=== PATIENT | male | born 1950 | race Caucasian/White ===

== ENCOUNTER 2021-12-04 03:02 | Outpatient (CLI) | payer OTHER, SELFPAY ==
[2021-12-04 12:14] LABS: Source Nasal/Nares
[2021-12-04 15:16] LABS: COVID-19 PCR Negative (Negative)
== END 2021-12-04 03:03 | disposition home or self-care (01) ==
LOC: LBO 03:02
PROVIDERS: PCP Family Medicine; Visit Provider Ophthalmology
DX: Z20.822 Contact with and (suspected) exposure to COVID-19 (principal); Z01.818 Encounter for other preprocedural examination
CPT/HCPCS: 87635

== ENCOUNTER 2021-12-06 07:01 | Day surgery (SDC) | payer OTHER, SELFPAY ==
[2021-12-06] MEDS: Tropicam./Phenyleph. (1/2.5%) 5 ML BTL OS ×3 (07:41→08:00)
[2021-12-06 07:45] VITALS: BP 158/107; PULSE 60; RESP 18; TEMP 36.6; O2SAT 98
--- NOTE | 2021-12-06 07:55 | ANES.PREOP_ITS ---
General Info Date of Service Date Performed: 12/06/21 Height: 5 ft 5.5 in Weight: 93.5 kg Body Mass Index (BMI): 33.7 Surgical Procedure: Operation Date: 12/06/21 08:40 Proposed Procedures Side Surgeon p Cataract Extraction with IOL Implant Left Keith Haji MD Meds Allergies and Home Medications Allergies Allergy/AdvReac Type Severity Reaction Status Date / Time naproxen AdvReac Mild Other (See Unverified 12/06/21 07:31 Comment) OTC cold medications AdvReac Unknown Other (See Uncoded 12/06/21 07:31 Comment) Home Medication Medication Instructions Recorded albuterol sulfate [Proventil HFA] 2 puff INHALATION Q4H PRN 12/03/21 aspirin 81 mg PO DAILY 12/03/21 atorvastatin 10 mg PO DAILY 12/03/21 chlorthalidone 12.5 mg PO DAILY 12/03/21 finasteride 5 mg PO DAILY 12/03/21 fluticasone propion-salmeterol 1 inh INHALATION BID 12/03/21 [Wixela Inhub] losartan 50 mg PO DAILY 12/03/21 metformin 500 mg PO DAILY 12/03/21 metoprolol tartrate 50 mg PO BID 12/03/21 multivitamin 1 tab PO DAILY 12/03/21 sildenafil 100 mg PO PRN PRN 12/03/21 Current Visit Medications: Current Medications Generic Name Dose Route Start Last Admin Trade Name Freq PRN Reason Stop Dose Admin Acetaminophen 1,000 mg 12/06/21 06:00 Acetaminophen 500 Mg Tab PO Q4H PRN PRN Miscellaneous Medication 0 ml 12/06/21 06:00 Prednisolone 1%, Moxifloxacin 0.5%, Nepafenac 0.1% 5ml Btl OS DIRECTED [facility] Miscellaneous Medication 0 ml 12/06/21 06:00 Tropicam./Phenyleph. (1/2.5%) 5 Ml Btl OS DIRECTED [facility] Tetracaine HCl 0 ml 12/06/21 06:00 Tetracaine 0.5% 4 Ml Btl OS DIRECTED 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 states he had a recent cold for which he took arythromycin, prescription finished,and has no current coughing or symptoms. Surgical History Surgical History Hx of Achilles tendon repair Hx of colonoscopy Hx of shoulder surgery Tobacco Smoking/Tobacco Use Status: Never Alcohol Alcohol Intake: current Alcohol intake frequency: a few times a week Substance Use Substance use: Never Substance use type: does not use Vital Signs and Lab Results Vital Signs Most Recent Vital Signs in EMR: Most Recent Vital Signs Temp Pulse Resp BP Pulse Ox 36.6 C 60 18 158/107 H 98 12/06/21 07:45 12/06/21 07:45 12/06/21 07:45 12/06/21 07:45 12/06/21 07:45 Lab Results Blood Type / Crossmatch: No Data to Display Complete Blood Count: No Data to Display Complete Metabolic Panel: No Data to Display Liver Function Panel: No Data to Display Coagulation Panel: No Data to Display Cardiac Panel: No Data to Display Arterial Blood Gas: No Data to Display Venous Blood Gas: No Data to Display Pancreas Panel: No Data to Display Thyroid Panel: No Data to Display Infectious Disease: Coronavirus (COVID-19)(PCR) Negative (Negative) 12/04/21 09:57 12/04/21 Coronavirus 2019 Source Nasal/Nares 12/04/21 09:57 12/04/21 Blood Cultures: No Data to Display Toxicology Panel: No Data to Display Anesthesia Assessment and Plan Anesthesia History Personal History: No History of Anesthesia Complications Family History: No Family History of Anesthesia Complications Exercise Tolerance Exercise Tolerance: Metabolic Equivalents>4 Pertinent Negatives Pertinent Negatives: No Symptoms of GERD Cardiac & Pulmonary Exam Cardiac Exam: Normal S1/S2 Heart Sounds Pulmonary Exam: Clear Bilateral Breath Sounds Implantable Cardiac Device Does patient have a Pacemaker or an ICD?: No Airway Exam Known Difficult Airway: No Mallampati Class: 3 Mouth Opening: Narrow (< 3cm) Thyromental Distance: Greater than 3 cm Neck Range of Motion: Full ROM Neck Circumference: Normal Teeth Condition: Normal Dentition ASA Classification ASA Score: ASA 2 Emergency Case?: No NPO Status NPO Status: NPO Clears >2 hours, Solids >8 hours Anesthesia Plan Resuscitation Status: Full Code Anesthesia Technique: MAC Anesthesia Airway Planned: Natural Airway Monitors Used: Standard Monitors
[2021-12-06 08:02] VITALS: BP 157/86; PULSE 57; RESP 16; TEMP 36.5; O2SAT 96
[2021-12-06 08:09] VITALS: BMI 33.7
[2021-12-06] MEDS: Tetracaine 0.5% 4 ML BTL OS (08:27)
[2021-12-06] MEDS: Lidocaine 2% Jelly 6 ML SYR (08:37)
[2021-12-06] MEDS: Duovisc Viscoelastic System EACH 1 EACH (08:42)
[2021-12-06] MEDS: Balanced Salt Soln.-PLUS 500 ML BAG (08:42)
[2021-12-06] MEDS: Povidone-Iodine Ophth 30 ML BTL (08:47)
[2021-12-06 09:00] VITALS: BP 145/81; PULSE 64; RESP 18; TEMP 36.1; O2SAT 18
--- NOTE | 2021-12-06 09:19 | W.ANESPOSTOP ---
Postoperative Evaluation Date, Time and Location Date Performed: 12/06/21 Time Performed: 09:05 Patient Location: Day Surgery Unit Vital Signs Most Recent Imported Vital Signs: Most Recent Vital Signs Temp Pulse Resp BP Pulse Ox 36.1 C L 64 18 145/81 H 18 L 12/06/21 09:00 12/06/21 09:00 12/06/21 09:00 12/06/21 09:00 12/06/21 09:00 Pain Score Most Recent Pain Score: Most Recent Pain Score Pain Level 0 12/06/21 09:00 Assessment Mental Status: Awake (Alert & Oriented to Patient Baseline) Airway and Respiratory Function: Patent airway with normal (patient baseline) respiratory exam Cardiovascular Function: Hemodynamically Stable Hydration Status: Adequately Hydrated Nausea & Vomiting: No Nausea or Vomiting Pain: Pt. Denies Any Pain Peripheral Nerve Block: Patient did not receive a nerve block
--- NOTE | 2021-12-06 11:05 | W.PM.DSUDISC ---
Discharge Plan Disposition Patient Disposition: HOME Condition: Good Discharge Details Attending Provider: Keith Haji Primary Care Provider: Eulalio Yanez Home Meds and New Rx's Prescriptions: No Action atorvastatin 20 mg tablet 10 mg PO DAILY RF: 0 chlorthalidone 25 mg tablet 12.5 mg PO DAILY RF: 0 aspirin 81 mg Capsule,Delayed Release(Dr/Ec) 81 mg PO DAILY RF: 0 finasteride 5 mg tablet 5 mg PO DAILY RF: 0 multivitamin Tablet 1 tab PO DAILY RF: 0 losartan 50 mg tablet 50 mg PO DAILY RF: 0 fluticasone propion-salmeterol [Wixela Inhub] 250-50 mcg/dose blister with device 1 inh INHALATION BID RF: 0 sildenafil 100 mg tablet 100 mg PO PRN PRNRF: 0 metoprolol tartrate 50 mg tablet 50 mg PO BID RF: 0 albuterol sulfate [Proventil HFA] 90 mcg/actuation Hfa Aerosol Inhaler 2 puff INHALATION Q4H PRNRF: 0 metformin 500 mg tablet extended release 24 hr 500 mg PO DAILY RF: 0 Discharge Orders Discharge Orders: Discharge Order (Routine); Ordered 12/06/21 Ordered By: Keith Haji Discharge Data Discharge Date/Time-TO BE ENTERED AT DEPARTURE: 12/06/21 09:20 DS: Diagnosis Discharge Diagnosis (1) Posterior subcapsular age-related cataract of left eye: Status: Resolved (2) Nuclear sclerotic cataract of left eye: Status: Resolved (3) Cortical cataract of left eye: Status: Resolved
== END 2021-12-06 09:20 | disposition home or self-care (01) ==
LOC: SUR 07:01
PROVIDERS: PCP Family Medicine; Visit Provider Ophthalmology
PROC: (CPT 66984; principal; 2021-12-06 08:30)
DX: H25.042 Posterior subcapsular polar age-related cataract, left eye (principal); E11.9 Type 2 diabetes mellitus without complications; J44.9 Chronic obstructive pulmonary disease, unspecified; H25.12 Age-related nuclear cataract, left eye; H25.012 Cortical age-related cataract, left eye
CPT/HCPCS: 66984; V2632

== ENCOUNTER 2021-12-18 01:14 | Outpatient (CLI) | payer OTHER, SELFPAY ==
[2021-12-18 14:24] LABS: Source Nasal/Nares
[2021-12-18 18:27] LABS: COVID-19 PCR Negative (Negative)
== END 2021-12-18 01:15 | disposition home or self-care (01) ==
LOC: LBO 01:14
PROVIDERS: PCP Family Medicine; Visit Provider Ophthalmology
DX: Z20.822 Contact with and (suspected) exposure to COVID-19 (principal); Z01.818 Encounter for other preprocedural examination
CPT/HCPCS: 87635

== ENCOUNTER 2021-12-20 07:27 | Day surgery (SDC) | payer OTHER, SELFPAY ==
--- NOTE | 2021-12-06 09:00 | W.PM.DSUDISC ---
Discharge Plan Disposition Patient Disposition: HOME Condition: Good Discharge Details Attending Provider: Keith Haji Primary Care Provider: Eulalio Yanez Home Meds and New Rx's Prescriptions: No Action atorvastatin 20 mg tablet 10 mg PO DAILY RF: 0 chlorthalidone 25 mg tablet 12.5 mg PO DAILY RF: 0 aspirin 81 mg Capsule,Delayed Release(Dr/Ec) 81 mg PO DAILY RF: 0 finasteride 5 mg tablet 5 mg PO DAILY RF: 0 multivitamin Tablet 1 tab PO DAILY RF: 0 losartan 50 mg tablet 50 mg PO DAILY RF: 0 fluticasone propion-salmeterol [Wixela Inhub] 250-50 mcg/dose blister with device 1 inh INHALATION BID RF: 0 sildenafil 100 mg tablet 100 mg PO PRN PRNRF: 0 metoprolol tartrate 50 mg tablet 50 mg PO BID RF: 0 albuterol sulfate [Proventil HFA] 90 mcg/actuation Hfa Aerosol Inhaler 2 puff INHALATION Q4H PRNRF: 0 metformin 500 mg tablet extended release 24 hr 500 mg PO DAILY RF: 0 Discharge Instructions Stand Alone Forms: Post-op Topical Cataract, Darline Lang ([facility]U) Discharge Orders Discharge Orders: Discharge Order (Routine); Ordered 12/06/21 Ordered By: Keith Haji DS: Diagnosis Discharge Diagnosis (1) Cortical cataract of left eye: Status: Resolved (2) Nuclear sclerotic cataract of left eye: Status: Resolved (3) Posterior subcapsular age-related cataract of left eye: Status: Resolved
--- NOTE | 2021-12-06 09:02 | W.PM.OP ---
Date of service: 12/06/21 Time of Service: 09:02 Operative Note Operative Note DATE OF PROCEDURE: 12/06/21 PRE-OP DIAGNOSIS: Nuclear/cortical/posterior subcapsular cataract, left eye Significant with the rule astigmatism, left eye POST-OP DIAGNOSIS: same PROCEDURE: Cataract extraction using phacoemulsification with toric intraocular lens implant, left eye SURGEON: Keith Haji ANESTHESIA TYPE: Local By Surgeon and MAC Refer to Anesthesia Record PATHOLOGY: none sent COMPLICATIONS: None Patient was transported to: same day Patient's condition: stable Implants: [employer] / MELODIE Tecnis ZCT Toric Intraocular Lens Indications: Progressive decreased vision due to cataract, left eye, with corneal astigmatism Findings: Procedure Description: CATARACT SURGERY OPERATIVE REPORT PREOPERATIVE DIAGNOSIS: Nuclear/cortical/posterior subcapsular cataract, left eye Significant with the rule astigmatism, left eye POSTOPERATIVE DIAGNOSIS: Same OPERATION: Cataract extraction using phacoemulsification with posterior chamber toric intraocular lens implant, left eye. IOL: IOL Call Center Coordinator/Model: [employer] / MELODIE Tecnis [id number] IOL Power: + 14.0 diopters sphere, 3.00 cylinder IOL Serial Number: [id number] Optic Diameter: 6.0mm Haptic/Overall Diameter: 13.00mm PHACO INFO: Mark Solace [employer]urion Vision System with OZil and Active Fluidics Cumulative Dispersed Energy (CDE): 26.86 seconds SURGEON: Keith Haji MD, PRIYA ANESTHESIA: Monitored Anesthesia Care (MAC), with local sub-tenon's anesthetic infiltration COMPLICATIONS: None SPECIMENS: None INDICATIONS FOR PROCEDURE: The patient is a 71-year-old gentleman with history of diminished visual acuity in both eyes secondary to the development of bilateral nuclear/cortical/posterior subcapsular cataract. He also has a significant amount of with the rule astigmatism in the left eye. The option of cataract surgery was offered to the patient and he wished to proceed. PROCEDURE: The correct surgical eye was identified and marked as the left eye and the pupil was dilated in the preoperative area using mydriatics and cycloplegics. The dilated pupil size was 7.0 mm. With the patient in the seated position, topical anesthetic was applied and a surgical marker was used to kena the limbus at 6:00. A Surgilum Robomarker was then used to kena the 0/180 degree reference axis. He elected to proceed without oral sedation.. The patient was brought to the operating room where cardiopulmonary monitoring was instituted and surgical time-out was performed, confirming the correct operative eye and IOL power. Topical anesthesia was administered and ophthalmic povidone-iodine 5% was instilled into the conjunctival fornices. Lidocaine gel was applied to the cornea and the rubina-ocular area was prepped with Betadine 10% solution and draped in the usual sterile fashion for intraocular surgery, including an aperture drape. A Tegaderm transparent film dressing was cut in half and used to cover the lashes and lid margins. Care was taken to sequester the lashes and lid margins under the Tegaderm dressing. A lid speculum was placed between the lids of the operative eye and the Charmaine-Juliocesar operating microscope was maneuvered into position. Quique scissors were then used to make a conjunctival buttonhole approximately 6mm posterior to the limbus in the inferonasal quadrant. Blunt dissection was carried out to expose bare sclera, and a blunt-tipped sub-tenon?s anesthesia cannula was introduced and passed posteriorly along the globe where non-preserved plain lidocaine was injected into posterior sub-Tenon?s space. A corneal ring gauge and axis marker were then used to kena the 344 degree position for the main phaco incision, and the 74 degree axis for alignment of the toric IOL. A sideport knife was used to make a paracentesis port superior/superiortemporally. Intraocular phenylephrine/lidocaine was injected into the anterior chamber. The anterior chamber was then filled with viscoelastic. A 2.4mm keratome knife was used to create a half-thickness groove at the limbus and then to construct a three-plane near-clear corneal tunnel extending 2.0mm into clear cornea at the 344 degree axis. . A flap was raised on the anterior capsule and capsulorhexis forceps were used to complete a continuous curvilinear capsulorhexis of 5.0 mm. Balanced salt solution was then used to perform cortical cleaving hydrodissection and nuclear hydrodelineation until the lens could be freely rotated within the capsular bag. The lens nucleus was then disassembled and removed within the capsular bag and iris plane using phacoemulsification. Residual cortical material was removed using the 45-degree angled silicone I/A tip with 0.3mm port. The posterior capsule was carefully polished to remove as much residual lens epithelial cells as safely possible. The capsular bag was then inflated and the anterior chamber deepened with viscoelastic. The lens implant described above was inserted into the capsular bag using the MELODIE [place] Injector. A Kuglen hook was used to dial the IOL into position, about 10 degrees counterclockwise of its final alignment. Residual viscoelastic was then removed first from posterior to the IOL, then from the anterior chamber using the I/A handpiece. The I/A handpiece was then used to dial the IOL to the target axis. The lens implant was noted to center nicely within the capsular bag, with the toric IOL sawant aligned at the 74 degree axis. The incisions were stromally hydrated, and the anterior chamber was reformed using BSS. Then 0.5cc of moxifloxacin 1.0mg/ml were injected into the capsular bag and anterior chamber. The incisions were checked with a Weck spear and found to be secure. Several drops of ophthalmic povidone-iodine 5% were then applied to the eye followed by two drops of Imprimis combination prednisolone/moxifloxacin/nepafenac solution. The drapes were removed and a clear plastic protective eye shield was placed over the eye. The patient was then returned to Same Day Surgery in stable condition.
[2021-12-20 07:31] VITALS: BP 167/96; PULSE 55; RESP 17; TEMP 36.5; O2SAT 98
[2021-12-20] MEDS: Tropicam./Phenyleph. (1/2.5%) 5 ML BTL OD ×3 (07:48→07:56)
[2021-12-20 08:14] VITALS: BMI 34.3
--- NOTE | 2021-12-20 08:14 | W.ANESPRE ---
General Info Date of Service Date Performed: 12/20/21 Height: 5 ft 5.5 in Weight: 95 kg Body Mass Index (BMI): 34.3 Surgical Procedure: Operation Date: 12/06/21 08:55 Proposed Procedures Side Surgeon p Cataract Extraction with IOL Implant Left Keith Haji MD Operation Date: 12/20/21 09:40 Proposed Procedures Side Surgeon p Cataract Extraction with IOL Implant Right Keith Haji MD Meds Allergies and Home Medications Allergies Allergy/AdvReac Type Severity Reaction Status Date / Time naproxen AdvReac Mild Other (See Unverified 12/20/21 07:41 Comment) OTC cold medications AdvReac Unknown Other (See Uncoded 12/20/21 07:41 Comment) Home Medication Medication Instructions Recorded albuterol sulfate [Proventil HFA] 2 puff INHALATION Q4H PRN 12/03/21 aspirin 81 mg PO DAILY 12/03/21 atorvastatin 10 mg PO DAILY 12/03/21 chlorthalidone 12.5 mg PO DAILY 12/03/21 finasteride 5 mg PO DAILY 12/03/21 fluticasone propion-salmeterol 1 inh INHALATION BID 12/03/21 [Wixela Inhub] losartan 50 mg PO DAILY 12/03/21 metformin 500 mg PO DAILY 12/03/21 metoprolol tartrate 50 mg PO BID 12/03/21 multivitamin 1 tab PO DAILY 12/03/21 sildenafil 100 mg PO PRN PRN 12/03/21 Current Visit Medications: Current Medications Generic Name Dose Route Start Last Admin Trade Name Freq PRN Reason Stop Dose Admin Acetaminophen 1,000 mg 12/20/21 06:07 Acetaminophen 500 Mg Tab PO Q4H PRN PRN Miscellaneous Medication 0 ml 12/20/21 06:07 Prednisolone 1%, Moxifloxacin 0.5%, Nepafenac 0.1% 5ml Btl OD DIRECTED [facility] Miscellaneous Medication 0 ml 12/20/21 06:07 12/20/21 07:56 Tropicam./Phenyleph. (1/2.5%) 5 Ml Btl OD 1 drp DIRECTED [facility] Administration Tetracaine HCl 0 ml 12/20/21 06:07 Tetracaine 0.5% 4 Ml Btl OD DIRECTED [facility] PFSH Active Problems Active Problems: Problem Status Onset Code Cortical cataract of left eye H26.9 Nuclear sclerotic cataract of left eye H25.12 Posterior subcapsular age-related cataract of left eye H25.042 Medical History Medical History Atypical chest pain Bilateral cataracts Chest pain Essential hypertension History of COPD History of rupture of Achilles tendon HLD (hyperlipidemia) Hx of acute bronchitis treating with Z-pack 500mg x3days Impotence Localized edema Malignant tumor of prostate Moderate persistent asthma Polyp of colon 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 states he had a recent cold for which he took arythromycin, prescription finished,and has no current coughing or symptoms. Surgical History Surgical History History of cataract surgery Hx of Achilles tendon repair Hx of colonoscopy Hx of shoulder surgery Tobacco Smoking/Tobacco Use Status: Never Alcohol Alcohol Intake: current Alcohol intake frequency: a few times a week Substance Use Substance use: Never Substance use type: does not use Vital Signs and Lab Results Vital Signs Most Recent Vital Signs in EMR: Most Recent Vital Signs Temp Pulse Resp BP Pulse Ox 36.5 C 55 L 17 167/96 H 98 12/20/21 07:31 12/20/21 07:31 12/20/21 07:31 12/20/21 07:31 12/20/21 07:31 Point of Care Results Point of Care Results: Finger Stick Blood Glucose 114 12/20/21 07:48 Lab Results Blood Type / Crossmatch: No Data to Display Complete Blood Count: No Data to Display Complete Metabolic Panel: No Data to Display Liver Function Panel: No Data to Display Coagulation Panel: No Data to Display Cardiac Panel: No Data to Display Arterial Blood Gas: No Data to Display Venous Blood Gas: No Data to Display Pancreas Panel: No Data to Display Thyroid Panel: No Data to Display Infectious Disease: Coronavirus (COVID-19)(PCR) Negative (Negative) 12/18/21 13:30 12/18/21 Coronavirus 2019 Source Nasal/Nares 12/18/21 13:30 12/18/21 Blood Cultures: No Data to Display Toxicology Panel: No Data to Display Anesthesia Assessment and Plan Anesthesia History Personal History: No History of Anesthesia Complications Family History: No Family History of Anesthesia Complications Exercise Tolerance Exercise Tolerance: Metabolic Equivalents>4 Cardiac & Pulmonary Exam Cardiac Exam: Normal S1/S2 Heart Sounds Pulmonary Exam: Clear Bilateral Breath Sounds Implantable Cardiac Device Does patient have a Pacemaker or an ICD?: No Airway Exam Known Difficult Airway: No Mallampati Class: 3 Mouth Opening: Narrow (< 3cm) Thyromental Distance: Greater than 3 cm Neck Range of Motion: Full ROM Neck Circumference: Normal Teeth Condition: Normal Dentition ASA Classification ASA Score: ASA 3 Emergency Case?: No NPO Status NPO Status: NPO Clears >2 hours, Solids >8 hours Anesthesia Plan Resuscitation Status: Full Code Anesthesia Technique: MAC Anesthesia Airway Planned: Natural Airway Monitors Used: Standard Monitors
[2021-12-20] MEDS: Tetracaine 0.5% 4 ML BTL OD (09:05)
[2021-12-20] MEDS: Povidone-Iodine Ophth 30 ML BTL (09:05)
[2021-12-20] MEDS: Lidocaine 2% Jelly 6 ML SYR (09:08)
[2021-12-20] MEDS: Balanced Salt Soln.-PLUS 500 ML BAG (09:16)
[2021-12-20] MEDS: Duovisc Viscoelastic System EACH 1 EACH (09:17)
[2021-12-20 09:37] VITALS: BP 126/76; PULSE 60; RESP 16; TEMP 36.2; O2SAT 97
--- NOTE | 2021-12-20 09:37 | W.PM.DSUDISC ---
Discharge Plan Disposition Patient Disposition: HOME Condition: Good Discharge Details Attending Provider: Keith Haji Primary Care Provider: Eulalio Yanez Home Meds and New Rx's Prescriptions: No Action atorvastatin 20 mg tablet 10 mg PO DAILY RF: 0 chlorthalidone 25 mg tablet 12.5 mg PO DAILY RF: 0 aspirin 81 mg Capsule,Delayed Release(Dr/Ec) 81 mg PO DAILY RF: 0 finasteride 5 mg tablet 5 mg PO DAILY RF: 0 multivitamin Tablet 1 tab PO DAILY RF: 0 losartan 50 mg tablet 50 mg PO DAILY RF: 0 fluticasone propion-salmeterol [Wixela Inhub] 250-50 mcg/dose blister with device 1 inh INHALATION BID RF: 0 sildenafil 100 mg tablet 100 mg PO PRN PRNRF: 0 metoprolol tartrate 50 mg tablet 50 mg PO BID RF: 0 albuterol sulfate [Proventil HFA] 90 mcg/actuation Hfa Aerosol Inhaler 2 puff INHALATION Q4H PRNRF: 0 metformin 500 mg tablet extended release 24 hr 500 mg PO DAILY RF: 0 Discharge Instructions Stand Alone Forms: Post-op Topical Cataract, Darline Lang ([facility]) Discharge Orders Discharge Orders: Discharge Order (Routine); Ordered 12/06/21 Ordered By: Keith Haji DS: Diagnosis Discharge Diagnosis (1) Cortical cataract of right eye: Status: Resolved (2) Nuclear sclerotic cataract of right eye: Status: Resolved (3) Posterior subcapsular age-related cataract, right eye: Status: Resolved (4) Astigmatism of right eye: Status: Chronic
--- NOTE | 2021-12-20 09:39 | W.PM.OP ---
Date of service: 12/20/21 Time of Service: 09:39 Operative Note Operative Note DATE OF PROCEDURE: 12/06/21 PRE-OP DIAGNOSIS: Nuclear/cortical/posterior subcapsular cataract, right eye With the rule astigmatism, right eye POST-OP DIAGNOSIS: same PROCEDURE: Cataract extraction using phacoemulsification with toric intraocular lens implant, right eye SURGEON: Keith Haji Refer to Anesthesia Record PATHOLOGY: none sent COMPLICATIONS: None Patient was transported to: same day Patient's condition: stable Implants: [employer] / MELODIE Tecnis ZCT Toric Intraocular Lens Indications: Progressive decreased vision due to cataract, right eye, with corneal astigmatism Procedure Description: [] CATARACT SURGERY OPERATIVE REPORT PREOPERATIVE DIAGNOSIS: Nuclear/cortical/posterior subcapsular cataract, right eye With the rule astigmatism, right eye POSTOPERATIVE DIAGNOSIS: Same OPERATION: Cataract extraction using phacoemulsification with posterior chamber toric intraocular lens implant, right eye. IOL: IOL Counter Sales Representative/Model: [employer] Vision / MELODIE Tecnis ZCU 450 IOL Power: + 16.5 diopters sphere, 4.50 cylinder IOL Serial Number: [id number] Optic Diameter: 6.0mm Haptic/Overall Diameter: 13.00mm PHACO INFO: Mark [employer] Vision System with OZil and [employer] Cumulative Dispersed Energy (CDE): 9.20 seconds SURGEON: Keith Haji MD, PRIYA ANESTHESIA: Monitored Anesthesia Care (MAC), with local sub-tenon's anesthetic infiltration COMPLICATIONS: None SPECIMENS: None INDICATIONS FOR PROCEDURE: The patient is a 71-year-old gentleman with history of significant with the rule a stigmatism who has developed bilateral nuclear/cortical/posterior subcapsular cataract. He has already undergone cataract surgery in the left eye with a toric intraocular lens implant and is doing well postoperatively. He now presents for cataract surgery in the right eye. PROCEDURE: The correct surgical eye was identified and marked as the right eye and the pupil was dilated in the preoperative area using mydriatics and cycloplegics. The dilated pupil size was 7.0 mm. With the patient in the seated position, topical anesthetic was applied and a surgical marker was used to kena the limbus at 6:00. A Surgilum Robomarker was then used to kena the 0/180 degree reference axis. Oral sedation was administered in the form of an Imprimis MKO Melt (midazolam 3mg/ketamine 25mg/ondansetron 2mg). The patient was brought to the operating room where cardiopulmonary monitoring was instituted and surgical time-out was performed, confirming the correct operative eye and IOL power. Topical anesthesia was administered and ophthalmic povidone-iodine 5% was instilled into the conjunctival fornices. Lidocaine gel was applied to the cornea and the rubina-ocular area was prepped with Betadine 10% solution and draped in the usual sterile fashion for intraocular surgery, including an aperture drape. A Tegaderm transparent film dressing was cut in half and used to cover the lashes and lid margins. Care was taken to sequester the lashes and lid margins under the Tegaderm dressing. A lid speculum was placed between the lids of the operative eye and the Charmaine-Juliocesar operating microscope was maneuvered into position. Quique scissors were then used to make a conjunctival buttonhole approximately 6mm posterior to the limbus in the inferonasal quadrant. Blunt dissection was carried out to expose bare sclera, and a blunt-tipped sub-tenon?s anesthesia cannula was introduced and passed posteriorly along the globe where non-preserved plain lidocaine was injected into posterior sub-Tenon?s space. A corneal ring gauge and axis marker were then used to kena the 135 degree position for the main phaco incision.and the 95 degree axis for alignment of the toric IOL. A sideport knife was used to make a paracentesis port at the 7:00 postion and the anterior chamber was filled with viscoelastic.. A 2.4mm keratome knife was used to create a half-thickness groove at the limbus and then to construct a three-plane near-clear corneal tunnel extending 2.0mm into clear cornea at the 135 degree axis. . A flap was raised on the anterior capsule and capsulorhexis forceps were used to complete a continuous curvilinear capsulorhexis of 5.0 mm. Balanced salt solution was then used to perform cortical cleaving hydrodissection and nuclear hydrodelineation until the lens could be freely rotated within the capsular bag. The lens nucleus was then disassembled and removed within the capsular bag and iris plane using phacoemulsification. Residual cortical material was removed using the 45-degree angled silicone I/A tip with 0.3mm port. The posterior capsule was carefully polished to remove as much residual lens epithelial cells as safely possible. The capsular bag was then inflated and the anterior chamber deepened with viscoelastic. The lens implant described above was inserted into the capsular bag using the MELODIE [place] [employer] [place] Injector. A Kuglen hook was used to dial the IOL into position, about 10 degrees counterclockwise of its final alignment. Residual viscoelastic was then removed first from posterior to the IOL, then from the anterior chamber using the I/A handpiece. The I/A handpiece was then used to dial the IOL to the target axis. The lens implant was noted to center nicely within the capsular bag, with the toric IOL sawant aligned at the 95 degree axis. The incisions were stromally hydrated, and the anterior chamber was reformed using BSS. Then 0.4cc of moxifloxacin 1.5mg/ml were injected into the capsular bag and anterior chamber. The incisions were checked with a Weck spear and found to be secure. Several drops of ophthalmic povidone-iodine 5% were then applied to the eye followed by two drops of Imprimis combination gatifloxacin/dexamethasone solution. The drapes were removed and a clear plastic protective eye shield was placed over the eye. The patient was then returned to Same Day Surgery in stable condition.
--- NOTE | 2021-12-20 10:02 | W.ANESPOSTOP ---
Postoperative Evaluation Date, Time and Location Date Performed: 12/20/21 Time Performed: 09:45 Patient Location: Day Surgery Unit Vital Signs Most Recent Imported Vital Signs: Most Recent Vital Signs Temp Pulse Resp BP Pulse Ox 36.2 C L 60 16 126/76 97 12/20/21 09:37 12/20/21 09:37 12/20/21 09:37 12/20/21 09:37 12/20/21 09:37 Pain Score Most Recent Pain Score: Most Recent Pain Score Pain Level 0 12/20/21 09:37 Assessment Mental Status: Awake (Alert & Oriented to Patient Baseline) Airway and Respiratory Function: Patent airway with normal (patient baseline) respiratory exam Cardiovascular Function: Hemodynamically Stable Hydration Status: Adequately Hydrated Nausea & Vomiting: No Nausea or Vomiting Pain: Pt. Denies Any Pain Peripheral Nerve Block: Patient did not receive a nerve block
[2021-12-20 10:07] VITALS: BP 141/82; PULSE 53; RESP 16; TEMP 36.6; O2SAT 96
== END 2021-12-20 10:12 | disposition home or self-care (01) ==
PROVIDERS: PCP Family Medicine; Visit Provider Ophthalmology
PROC: (CPT 66984; principal; 2021-12-20 09:30)
DX: H25.041 Posterior subcapsular polar age-related cataract, right eye (principal); H52.201 Unspecified astigmatism, right eye; E11.9 Type 2 diabetes mellitus without complications; J44.9 Chronic obstructive pulmonary disease, unspecified; J45.40 Moderate persistent asthma, uncomplicated
CPT/HCPCS: 66984